=== PATIENT | male | born 1970 | race Native Hawaiian/Other Pacific Islander ===

== ENCOUNTER 2019-08-20 09:36 | Outpatient (CLI) | payer OTHER ==
[~2019-08-20 09:36] MED LIST: CYCL10TA35 PO; MELO-13 PO; MULTIVITAMIN PO
== END 2019-08-20 09:37 | disposition short-term general hospital (02) ==
LOC: AMB 09:36
DX: R07.89 Other chest pain (principal); R73.9 Hyperglycemia, unspecified
CPT/HCPCS: A0425; A0427

== ENCOUNTER 2019-08-20 09:40 | Emergency (ER) | payer OTHER ==
[~2019-08-20] VITALS: Ht 180.3 cm; Wt 106.1 kg
[2019-08-20 09:40] VITALS: TEMP 98.4
[2019-08-20 10:37] LABS: PLATELET COUNT 249 K/uL (142-355)
[2019-08-20 10:47] LABS: POTASSIUM 3.6 mmol/L (3.6-5.2); SODIUM 137 mmol/L (136-145)
[2019-08-20 11:06] LABS: PARTIAL THROMBOPLASTIN TIME 26.4 SECONDS (24.5-33.6)
[2019-08-20 13:00] VITALS: BP 136/90
== END 2019-08-20 13:13 | disposition home or self-care (01) ==
LOC: ED 09:49
PROVIDERS: Student in an Organized Health Care Education/Training Program
DX: R07.89 Other chest pain (principal); R73.9 Hyperglycemia, unspecified
CPT/HCPCS: 80048; 83690; 83735; 83880; 84484; 85027; 85610; 85730; 93005; 96374; 96375; 99284; J2270; J2405; Q9963